=== PATIENT | male | born 1970 | race Caucasian/White ===

== ENCOUNTER 2018-01-31 15:18 | Emergency (ER) | payer SELFPAY ==
[2018-01-31] MEDS ORDERED: LIDOCAINE 1% 20 ML MDV ONE (16:02)
--- NOTE | 2018-01-31 16:36 | ER ---
Nurse's Notes [facility] Name: Buddy Gr Age: 47 yrs Sex: Male : 1970 Arrival Date: 01/31/2018 Time: 15:21 Bed 11 Private MD: Diagnosis: Cutaneous abscess of left upper limb Presentation: 01/31 15:22 Presenting complaint: Patient states: i think i had an insect bite and i started hj noticing getting bigger on the L lower arm; hx of MRSA; denies fever and chills;. Transition of care: patient was not received from another setting of care. Onset of symptoms was January 31, 2018. Initial Sepsis Screen: Does the patient meet any 2 criteria? No. Patient's initial sepsis screen is negative. Does the patient have a suspected source of infection? Yes: Skin breakdown/wound. Care prior to arrival: None. 15:22 Method Of Arrival: Ambulatory 15:22 Acuity: TOMMY 4 hj Triage Assessment: 15:25 Bite description: bite sustained to palmar aspect of left forearm by an unknown animal, animal information: vaccination(s) is not applicable. General: Appears in no apparent distress. uncomfortable, Behavior is calm, cooperative, appropriate for age. Pain: Complains of pain in palmar aspect of left forearm Pain currently is 10 out of 10 on a pain scale. Historical: - Allergies: 15:25 No Known Allergies; hj - Home Meds: 15:25 Zoloft Oral [Active]; Xanax Oral [Active]; hj - PMHx: 15:25 Depression; - PSHx: 15:25 back; leg; - Immunization history:: Adult Immunizations up to date. - Social history:: Smoking status: unknown. Screenin:58 Abuse screen: Denies threats or abuse. Nutritional screening: No deficits noted. la1 Tuberculosis screening: No symptoms or risk factors identified. Fall Risk None identified. Assessment: 15:25 Derm: Skin boils Skin is pink, warm \T\ dry. hj 15:57 General: Appears in no apparent distress. Behavior is calm, cooperative. Pain: la1 Complains of pain in palmar aspect of left forearm. Neuro: Level of Consciousness is awake, alert, obeys commands, Oriented to person, place, time, situation. Cardiovascular: Capillary refill < 3 seconds. Respiratory: Airway is patent Respiratory effort is even, unlabored. Derm: Abscess located on palmar aspect of left forearm is quarter sized, is hot to touch, is red, is raised. Vital Signs: 15:26 BP 137 / 91; Pulse 67; Resp 18; Temp 99.0(TE); Pulse Ox 97% on R/A; Weight 86.18 kg; hj Height 5 ft. 9 in. (175.26 cm); Pain 10/10; 16:49 BP 141 / 74; Pulse 81; Resp 19; Pulse Ox 100% on R/A; la1 15:26 Body Mass Index 28.06 (86.18 kg, 175.26 cm) ED Course: 15:21 Patient arrived in ED. rg4 15:24 Triage completed. hj 15:25 Arm band placed on right wrist. 15:56 Vitaliy Chow PA is PHCP. 8 15:56 Steve Cerda MD is Attending Physician. [facility] 15:57 William Allison RN is Primary Nurse. la1 15:58 Call light in reach. la1 16:49 No provider procedures requiring assistance completed. Patient did not have IV access la1 during this emergency room visit. Administered Medications: 16:06 Drug: Lidocaine (1 %) 20 ml Volume: 20 ml; Route: Infiltration; 16:48 Drug: Ativan 0.5 mg Route: PO; la1 16:49 Follow up: Response: No adverse reaction la1 16:49 Drug: Beaver (7.5 mg-325 mg) 1 tabs Route: PO; la1 16:49 Follow up: Response: Medication administered at discharge. la1 Outcome: 16:36 Discharge ordered by . jr8 16:49 Discharged to home ambulatory. la1 16:49 Condition: stable 16:49 Discharge instructions given to patient, Instructed on discharge instructions, follow up and referral plans. medication usage, Demonstrated understanding of instructions, follow-up care, medications, Prescriptions given X 3. 16:49 Patient left the ED. la1 Addendum: 02/04/2018 08:53 Addendum: Culture Results: Positive urine culture. No further action required. Bacteria i w sensitive to prescribed antibiotic. Signatures: Lori Culver RN RN Vitaliy Chow PA PA [facility] William Allison RN RN la1 Joaquin, Henry, RN RN Laura Robin4 Corrections: (The following items were deleted from the chart) 01/31 15:28 15:22 Acuity: TOMMY 3 calvin simpson
--- NOTE | 2018-01-31 16:36 | EDPHYS ---
Physician Documentation [facility] Name: Buddy Gr Age: 47 yrs Sex: Male : 1970 Arrival Date: 01/31/2018 Time: 15:21 Bed 11 Private MD: ED Physician Steve Cerda HPI: 01/31 16:07 This 47 yrs old Male presents to ER via Ambulatory with complaints of abscess.jr8 16:07 The patient presents with an abscess of the left arm. Description: The affected area is jr8 moderate sized, well demarcated, erythematous, pointed, swollen, tense, warm. Onset: The symptoms/episode began/occurred acutely, 4 day(s) ago. Possible cause(s): unknown. Associated signs and symptoms: The patient has no apparent associated signs or symptoms. Modifying factors: the symptoms are alleviated by nothing, the symptoms are aggravated by pressure, squeezing the lesion and expressing the contents, touching. Severity of symptoms: At their worst the symptoms were moderate, in the emergency department the symptoms are unchanged. The patient has not experienced similar symptoms in the past. The patient has not recently seen a physician. Patient stated that he noticed red dots on arm that have since turned into abscesses. Has not been able to see a physician but was able to be started on bactrim from pharmacy. Has been on it for 3 days without relief . Historical: - Allergies: 15:25 No Known Allergies; hj - Home Meds: 15:25 Zoloft Oral [Active]; Xanax Oral [Active]; hj - PMHx: 15:25 Depression; hj - PSHx: 15:25 back; leg; hj - Immunization history:: Adult Immunizations up to date. - Social history:: Smoking status: unknown. ROS: 16:07 Eyes: Negative for injury, pain, redness, and discharge, ENT: Negative for injury, jr8 pain, and discharge, Neck: Negative for injury, pain, and swelling, Cardiovascular: Negative for chest pain, palpitations, and edema, Respiratory: Negative for shortness of breath, cough, wheezing, and pleuritic chest pain, Abdomen/GI: Negative for abdominal pain, nausea, vomiting, diarrhea, and constipation, Back: Negative for injury and pain, MS/Extremity: Negative for injury and deformity, Neuro: Negative for headache, weakness, numbness, tingling, and seizure. 16:07 Skin: Positive for abscess, of the left arm. Exam: 16:07 Cardiovascular: Regular rate and rhythm with a normal S1 and S2. No gallops, murmurs, jr8 or rubs. Normal PMI, no JVD. No pulse deficits. Respiratory: Lungs have equal breath sounds bilaterally, clear to auscultation and percussion. No rales, rhonchi or wheezes noted. No increased work of breathing, no retractions or nasal flaring. MS/ Extremity: Pulses equal, no cyanosis. Neurovascular intact. Full, normal range of motion. Neuro: Awake and alert, GCS 15, oriented to person, place, time, and situation. Cranial nerves II-XII grossly intact. Motor strength 5/5 in all extremities. Sensory grossly intact. Cerebellar exam normal. Normal gait. 16:07 Skin: two abscess noted to dorsal aspect of left arm one proximal and the other distal. moderate in size but well demarcated. Mild surrounding erythema noted. No cellulitis. Pustules noted with fluctuance . Vital Signs: 15:26 BP 137 / 91; Pulse 67; Resp 18; Temp 99.0(TE); Pulse Ox 97% on R/A; Weight 86.18 kg; Height 5 ft. 9 in. (175.26 cm); Pain 10/10; 16:49 BP 141 / 74; Pulse 81; Resp 19; Pulse Ox 100% on R/A; la1 15:26 Body Mass Index 28.06 (86.18 kg, 175.26 cm) Procedures: 16:34 I \T\ D: Incision and drainage was performed for an abscess of the left left arm Prepped jr8 with Betadine, Anesthetized with 4 ml's 1% Lidocaine. Incised with #11 blade. Drained moderate amount purulent fluid. bloody fluid. Loculations removed. Cultures obtained. Abscess cavity explored. Packed with sterile gauze, Dressing: sterile 4x4 gauze, the patient tolerated the procedure well. 16:34 I \T\ D: Incision and drainage was performed for an abscess of the left left arm Prepped jr8 with Betadine, Anesthetized with 3 ml's 1% Lidocaine. Incised with #11 blade. Drained small amount purulent fluid. bloody fluid. Loculations removed. Cultures obtained. Abscess cavity explored. Packed with sterile gauze, Dressing: sterile 4x4 gauze, the patient tolerated the procedure well. MDM: 15:57 Patient medically screened. jr8 16:34 Data reviewed: vital signs, nurses notes, lab test result(s), and as a result, I will jr8 discharge patient. Data interpreted: Pulse oximetry: on room air is 97 %. Interpretation: normal. Counseling: I had a detailed discussion with the patient and/or guardian regarding: the historical points, exam findings, and any diagnostic results supporting the discharge/admit diagnosis, lab results, the need for outpatient follow up, a family practitioner, to return to the emergency department if symptoms worsen or persist or if there are any questions or concerns that arise at home. 01/31 16:06 Order name: Wound Culture 01/31 16:06 Order name: Wound Culture 01/31 16:06 Order name: Dressing - Wound; Complete Time: 16:06 01/31 16:06 Order name: Gloves, Sterile; Complete Time: 16:06 01/31 16:06 Order name: I\T\D Setup; Complete Time: 16:06 iw 01/31 16:06 Order name: Scalpel; Complete Time: 16:06 iw Administered Medications: 16:06 Drug: Lidocaine (1 %) 20 ml Volume: 20 ml; Route: Infiltration; iw 16:48 Drug: Ativan 0.5 mg Route: PO; la1 16:49 Follow up: Response: No adverse reaction la1 16:49 Drug: Snyder (7.5 mg-325 mg) 1 tabs Route: PO; la1 16:49 Follow up: Response: Medication administered at discharge. [facility] Disposition: 01/31/18 16:36 Discharged to Home. Impression: Cutaneous abscess of left upper limb. - Condition is Stable. - Discharge Instructions: Abscess, Incision and Drainage. - Prescriptions for Clindamycin HCl 300 mg Oral Capsule - take 1 capsule by ORAL route every 6 hours for 10 days; 40 capsule. Ibuprofen 800 mg Oral Tablet - take 1 tablet by ORAL route every 12 hours As needed take with food; 20 tablet. Tylenol- Codeine #3 300-30 mg Oral Tablet - take 2 tablets by ORAL route every 6 hours As needed; 20 tablet. - Medication Reconciliation Form, Thank You Letter, Antibiotic Education, Prescription Opioid Use form. - Follow up: Private Physician; When: 1 - 2 days; Reason: Recheck today's complaints, Continuance of care, Re-evaluation by your physician. - Problem is new. - Symptoms have improved. - Notes: Continue and finish bactrim in addition to clindamycin Addendum: 02/01/2018 19:52 Co-signature as Attending Physician, Steve Cerda MD. g s Signatures: Dispatcher [employer] EDMS Lori Culver, RN RN Vitaliy Yusuf PA PA jr8 William Allison RN RN la1 Dalton Neal RN RN Steve Aranda MD MD Corrections: (The following items were deleted from the chart) 01/31 16:49 16:36 01/31/2018 16:36 Discharged to Home. Impression: Cutaneous abscess of left upper la1 limb. Condition is Stable. Forms are Medication Reconciliation Form, Thank You Letter, Antibiotic Education, Prescription Opioid Use. Follow up: Private Physician; When: 1 - 2 days; Reason: Recheck today's complaints, Continuance of care, Re-evaluation by your physician. Problem is new. Symptoms have improved. jr8
[2018-01-31] MEDS ORDERED: HYDROCODONE/APAP 7.5/325 MG TAB ONE (16:38)
[2018-01-31] MEDS ORDERED: LORAZEPAM 0.5 MG TABLET ONE (16:38)
== END 2018-01-31 16:49 | disposition home or self-care (01) ==
LOC: ER 15:18
PROC: 0J9F0ZZ Drainage of Left Upper Arm Subcutaneous Tissue and Fascia, Open Approach (ICD-10-PCS; principal; 2018-01-31)
DX: L02.414 Cutaneous abscess of left upper limb (principal); F32.9 Major depressive disorder, single episode, unspecified
CPT/HCPCS: 87070; 87077; 87186; 87205; 99283